=== PATIENT | male | born 1965 | race Caucasian/White ===

== ENCOUNTER 2018-07-29 00:09 | Day surgery (SDC) | payer BC ==
[~2018-07-29] VITALS: Ht 190.5 cm; Wt 80.3 kg
[~2018-07-29 00:09] MED LIST: AMOX-362 PO; DEXL60CA6 PO; ESOM40CA42 PO; FLUT16SP19; MONT10TA PO
[2018-07-29] MEDS ORDERED: LIDOCAINE/SOD BICARB 8.4% SYR ID ONE (10:40)
[2018-07-29] MEDS ORDERED: ceFAZolin(*) 2GM/D5W 50ML 50 ML IVPB ONE (10:40)
[2018-07-29] MEDS ORDERED: MIDAZOLAM 2 MG/2 ML VIAL IVP PRN (10:40)
[2018-07-29] MEDS: NORMOSOL R SOLN(*) 1000 ML BAG 1,000 ML IV PRN ×2 (11:59→13:22)
[2018-07-29] MEDS ORDERED: FAMOTIDINE 20 MG TAB PO ONE (12:00)
[2018-07-29 12:06] VITALS: BP 129/87
[2018-07-29] MEDS ORDERED: NS(*) 0.9% 250 ML BAG 250 ML ONE (14:06)
[2018-07-29] MEDS ORDERED: OXYMETAZOLINE SPRAY 15 ML BTL ONE (14:06)
[2018-07-29] MEDS ORDERED: MUPIROCIN 2% OINT 22 GM TUBE TP ONE (14:06)
[2018-07-29] MEDS ORDERED: BACITRACIN OINT 15 GM TUBE TP ONE (14:06)
[2018-07-29] MEDS ORDERED: LIDO/EPI 1% MDV 1:100,000 20ML INFIL ONE (14:06)
[2018-07-29] MEDS ORDERED: DEXAMETHASONE SOD PHOS 10MG/ML ONE (14:41)
[2018-07-29] MEDS ORDERED: PROPOFOL EMUL(*) 10MG/ML 20 ML 20 ML ONE (14:41)
[2018-07-29] MEDS ORDERED: ONDANSETRON 4 MG/2 ML VIAL ONE (14:41)
[2018-07-29] MEDS ORDERED: fentaNYL CITR 100 MCG/2 ML AMP ONE ×2 (15:26→16:32)
[2018-07-29] MEDS ORDERED: LABETALOL HCL 20 MG/4 ML SYR ONE (16:23)
[2018-07-29 17:20] VITALS: BP 148/94
[2018-07-29] MEDS ORDERED: APAP/HYDROCODONE 325/5 TAB ONE (17:43)
[2018-07-29 17:45] VITALS: BP 135/92
[2018-07-29 18:00] VITALS: BP 133/89
[2018-07-29 18:20] VITALS: BP 130/88
[2018-07-29 18:22] VITALS: BP 141/87
--- NOTE | 2018-07-29 19:13 | NUR ---
1720- PT. TRANSITIONED TO PHASE 2. STAYING IN MY CARE 1730- PT. GIVEN APPLESAUCE. 174- PT. GIVEN 1 LORTAB FOR PAIN AT 4/10 AND A WATER REFILL. 1750- PT. MUSTACHE DRESSING CHANGED. THERE WAS A MODERATE AMOUNT OF BLOODY DRAINAGE NOTED ON THE 2X2. 1800- GIRLFRIEND SENT TO THE PHARMACY TO GET PRESCRIPTIONS FILLED. 1820- PT. STATES THAT HE IS READY TO GO HOME SO ORTHOSTATICS PREFORMED. 1830- PT. UP TO THE BATHROOM AND GETTING DRESSED. 184- GIRLFRIEND BACK FROM PHARMACY. 1850- DISCHARGE INSTRUCTIONS GONE OVER WITH PT. AND GIRLFRIEND. 1900- IV DC'D WITH CATH INTACT AND PRESSURE DRESSING APPLIED. 190- PT ESCORTED OUT AMBULATORY WITH GIRLFRIEND ACCOMPANIED BY PEGGY GUTIERREZ.
--- NOTE | 2018-07-30 02:26 | OPERATIVE REPORT 1 ---
EVENT DATE: July 29, 2018 SURGEON: Demetrius Sweet Jr., MD ANESTHESIOLOGIST: Bernardo Young MD ANESTHESIA: LMA. PREOPERATIVE DIAGNOSIS 1. Nasoseptal deviation. 2. Bilateral inferior turbinate hypertrophy. POSTOPERATIVE DIAGNOSIS 1. Nasoseptal deviation. 2. Bilateral inferior turbinate hypertrophy. PROCEDURE PERFORMED 1. Septoplasty. 2. Submucosal resection of bilateral inferior turbinates. INDICATIONS Please refer to the preoperative note. DESCRIPTION OF PROCEDURE The patient was positively identified in the preoperative area. He was accompanied by his . Risks were again explained, which included but were not limited to bleeding, infection, nasoseptal perforation, and those associated with anesthesia. He acknowledged understanding of those risks. He was then brought back to the operative suite and laid supine on the operative table, and anesthesia was administered. Once asleep, the patient was positioned, prepped and draped in the usual sterile fashion. The nasal cavity was initially decongested by injecting approximately 10 mL of 1% lidocaine with epinephrine to the bilateral anterior nasoseptal mucosa and along the face of the bilateral inferior turbinates. I began with septoplasty. A Esbon incision was then made into the anterior nasoseptal cartilage on the left. A subperichondrial flap was elevated. An incision was then made into the anterior nasoseptal cartilage approximately 5 mm posterior to the original Demetrio incision. A contralateral flap was raised. The deviated portion of the patient's nasoseptal bone and cartilage was then removed. The patient had tears of the bilateral mucosal flaps; therefore, a mattress suture was placed. I then addressed the inferior turbinates. A stab incision was made in the face of the left inferior turbinate. A Edilson elevator was utilized to elevate the mucosa off of the underlying bone. A submucosal resection was then performed with the turbinate blade of the microdebrider. The stab incision was then cauterized and suctioned with Bovie electrocautery. The contralateral inferior turbinate was addressed in a similar fashion. Bilateral nasoseptal splints were then placed and secured to the columella with a suture. The patient was then turned to Anesthesia for emergence. ESTIMATED BLOOD LOSS 25 mL. COMPLICATIONS None. MTDD
== END 2018-07-29 17:20 | disposition home or self-care (01) ==
LOC: OR 00:09
PROVIDERS: ATTEND Otolaryngology
DX: J34.2 Deviated nasal septum (principal); J33.8 Other polyp of sinus
CPT/HCPCS: 30140; 30520; C1726; C1763; C1769; C1887; J1100; J2250; J2405; J2704; J3010; J3490; J7050; J0690